=== PATIENT | male | born 1970 | race Caucasian/White ===

== ENCOUNTER 2020-07-12 16:43 | Inpatient (IN) | payer OTHER ==
[~2020-07-12] VITALS: Ht 177.8 cm; Wt 72.5 kg
[2020-07-12] MEDS ORDERED: BUPRENORPHINE HCL/NALOXONE HCL 8-2 MG SUBLINGUAL TABLET SL ONE ×2 (18:15→20:00)
[2020-07-12 18:48] LABS: COVID AG,FIA SOURCE NASOPHARYNGEAL
[2020-07-12 19:23] LABS: AMPHET/METH SCREEN,URINE POSITIVE (NEGATIVE); BARBITURATE SCREEN, URINE NEGATIVE (NEGATIVE); BENZODIAZEPINES SCREEN,URINE NEGATIVE (NEGATIVE); CANNABINOID SCREEN,URINE NEGATIVE (NEGATIVE); COCAINE SCREEN,URINE NEGATIVE (NEGATIVE); METHADONE SCREEN, URINE NEGATIVE (NEGATIVE); OPIATE SCREEN,URINE POSITIVE (NEGATIVE); PHENCYCLIDINE SCREEN,URINE NEGATIVE (NEGATIVE)
[2020-07-12 19:29] LABS: BASOPHILS % (AUTO) 0.5 % (0.0-2.0); EOSINOPHILS % (AUTO) 0.5 % (1.0-6.0); HEMATOCRIT 38.4 % (41-53); HEMOGLOBIN 11.7 g/dL (13.5-17.5); LYMPHOCYTES # (AUTO) 0.9 K/uL (1.0-4.8); LYMPHOCYTES % (AUTO) 19.5 % (22.0-44.0); MEAN CORPUSCULAR HEMOGLOBIN 29.7 pg (26.0-34.0); MEAN CORPUSCULAR HGB CONC 30.4 G/dL (31.0-37.0); MEAN CORPUSCULAR VOLUME 98 fL (80-100); MONOCYTES # (AUTO) 0.4 K/uL (0.1-1.0); MONOCYTES % (AUTO) 8.7 % (2.0-9.0); NEUTROPHILS # (AUTO) 3.3 K/uL (1.8-7.7); NEUTROPHILS % (AUTO) 70.8 % (40.0-70.0); PLATELET COUNT (AUTO) 121 K/uL (150-450); RED BLOOD CELL COUNT(AUTO) 3.93 MIL/uL (4.50-5.90); RED CELL DISTRIBUTION WIDTH 16.9 % (11.5-14.5)
[2020-07-12 19:46] LABS: ANION GAP 5 mmol/L (8-16); CALCIUM, TOTAL 8.5 mg/dL (8.8-10.5); CARBON DIOXIDE 27 mmol/L (22-29); CHLORIDE 102 mmol/L (98-107); CREATININE 0.61 mg/dL (0.60-1.30); GLOMERULAR FILTR. RATE CALC > 60 mL/min (>60); GLUCOSE,RANDOM 100 mg/dL (70-110); POTASSIUM 3.6 mmol/L (3.5-5.1); SODIUM SERUM 134 mmol/L (136-145); UREA NITROGEN, BLOOD 13 mg/dL (7-18)
[2020-07-12 19:53] LABS: ALANINE AMINOTRANSFERASE 87 U/L (12-78); ALBUMIN 2.8 g/dL (3.4-5.0); ALKALINE PHOSPHATASE 92 U/L (46-116); ASPARTATE AMINOTRANSFERASE 74 U/L (15-37); BILIRUBIN,TOTAL 0.4 mg/dL (0.1-1.0); LIPASE 90 U/L (73-393); TOTAL PROTEIN, SERUM 7.2 g/dL (6.4-8.2)
[2020-07-12] MEDS ORDERED: BUPRENORPHINE HCL/NALOXONE HCL 8-2 MG SUBLINGUAL TABLET SL PRN (20:00)
[2020-07-12] MEDS ORDERED: LORazepam 2 MG TABLET PO PRN (20:15)
[2020-07-12] MEDS ORDERED: ONDANSETRON HCL 4 MG/2 ML VIAL IVP PRN (20:15)
[2020-07-12 20:30] VITALS: BP 155/75
[2020-07-12] MEDS ORDERED: 1: MAGNESIUM SULFATE 2 GM, MVI, ADULT NO.1 WITH VIT K 10 ML, THIAMINE 100 MG, FOLIC ACID IV SCH ×5 (21:00)
[2020-07-12 23:04] VITALS: BP 140/69
[2020-07-13] MEDS: MULTIVITAMINS, THERAPEUTIC TABLET PO SCH ×2 (01:45→12:51)
[2020-07-13 05:05] VITALS: BP 120/59
[2020-07-13] MEDS: BISMUTH SUBSALICYLATE 524 MG/30 ML SUSPENSION UDCUP PO PRN (05:53)
[2020-07-13] MEDS ORDERED: ONDANSETRON HCL 4 MG TABLET PO PRN (07:15)
[2020-07-13 08:05] VITALS: BP 123/70
[2020-07-13] MEDS: ENOXAPARIN SODIUM 40 MG/0.4 ML PF SYRINGE SQ SCH (08:21)
[2020-07-13] MEDS ORDERED: LORazepam 2 MG TABLET PO SCH (09:00)
[2020-07-13 19:50] VITALS: BP 137/89
[2020-07-13] MEDS: LORazepam 2 MG TABLET PO PRN (21:00)
[2020-07-14 03:51] VITALS: BP 127/76
[2020-07-14 07:50] VITALS: BP 100/58
[2020-07-14] MEDS: MULTIVITAMINS, THERAPEUTIC TABLET PO SCH (08:42)
[2020-07-14] MEDS: THIAMINE 100 MG TABLET PO SCH (08:42)
[2020-07-14] MEDS: FOLIC ACID 1 MG TABLET PO SCH (08:42)
[2020-07-14] MEDS: ENOXAPARIN SODIUM 40 MG/0.4 ML PF SYRINGE SQ SCH (08:42)
[2020-07-14 19:45] VITALS: BP 123/76
[2020-07-14] MEDS: LORazepam 2 MG TABLET PO PRN (20:03)
[2020-07-15 04:05] VITALS: BP 124/61
[2020-07-15] MEDS ORDERED: LORazepam 1 MG TABLET PO PRN (07:00)
[2020-07-15 07:35] VITALS: BP 110/77
[2020-07-15] MEDS: FOLIC ACID 1 MG TABLET PO SCH (08:22)
[2020-07-15] MEDS: MULTIVITAMINS, THERAPEUTIC TABLET PO SCH (08:22)
[2020-07-15] MEDS: ENOXAPARIN SODIUM 40 MG/0.4 ML PF SYRINGE SQ SCH (08:23)
[2020-07-15] MEDS: THIAMINE 100 MG TABLET PO SCH (08:23)
[2020-07-15] MEDS: BISMUTH SUBSALICYLATE 524 MG/30 ML SUSPENSION UDCUP PO PRN (08:27)
[2020-07-15] MEDS ORDERED: LORazepam 1 MG TABLET PO SCH (09:00)
[2020-07-15] MEDS ORDERED: OMEP20 PO (13:53)
[2020-07-16] MEDS ORDERED: LORazepam 1 MG TABLET PO PRN (07:00)
== END 2020-07-15 15:10 | DRG 897 ==
LOC: EMS 16:46 → 6S 19:00
PROVIDERS: ADMIT Internal Medicine; ATTEND Internal Medicine
DX: F11.23 Opioid dependence with withdrawal (principal); E87.1 Hypo-osmolality and hyponatremia; F15.10 Other stimulant abuse, uncomplicated; F41.1 Generalized anxiety disorder; B18.2 Chronic viral hepatitis C; Y90.9 Presence of alcohol in blood, level not specified; D64.9 Anemia, unspecified; D69.6 Thrombocytopenia, unspecified; F10.121 Alcohol abuse with intoxication delirium; Z20.822 Contact with and (suspected) exposure to COVID-19
CPT/HCPCS: 80074; 87426; 99285; G0480; J1650; J3411; J3475; J3490; J7030; Q0162